=== PATIENT | female | born 1985 | race Asian ===

== ENCOUNTER 2024-01-04 17:46 | Emergency (ER) | payer BC, SELFPAY ==
[2024-01-04 17:48] VITALS: BP 119/60; PULSE 87; RESP 16; TEMP 36.9; O2SAT 100; BMI 19.5
[2024-01-04 18:11] LABS: Absolute Lymphocyte Count 1.67 X10^3/uL (0.83-4.51); Basophil# 0.04 X10^3/uL; Basophil% 0.7 % (0-1); Eosinophil# 0.01 X10^3/uL; Eosinophils% 0.2 % (0-5); Hematocrit 43.4 % (37-47); Hemoglobin 14.4 g/dL (12.0-15.0); Lymphocyte # 1.67 X10^3/ul (0.83-4.51); Lymphocyte % 27.5 % (19-41); Mean Corp Hgb Conc 33.2 g/dL (32-36); Mean Corpuscular Hgb 32.2 pg (27.0-32.0); Mean Corpuscular Volume 97.1 fL (81-99); Monocyte# 0.35 X10^3/uL; Monocyte% 5.8 % (0-10); NRBC Flagged by Analyzer 0 % (0-5); Neutrophil % 65.6 % (47-70); Platelet Count 310 K/mm3 (150-450); RBC Distribution Width CV 12.5 % (11.6-14.6); RBC Distribution Width SD 44.3 fl (35.1-43.9); Red Blood Count 4.47 M/mm3 (4.2-5.4); White Blood Count 6.1 K/mm3 (4.4-11.0)
[2024-01-04 18:23] LABS: Internal QC Validated? YES +Cl - CLEAR BKGD; Pregnancy, Serum, hCG Quali. NEGATIVE Negative
[2024-01-04 18:33] LABS: ALB/GLOB Ratio 1.2 RATIO (0.9-2.4); AST(SGOT) 26 U/L (15-37); Alanine Aminotransfer ALT/SGPT 25 U/L (13-56); Albumin, Serum 4.4 g/dL (3.2-5.0); Alkaline Phosphatase 58 U/L (45-117); Anion Gap 7 (5-15); BUN 7 mg/dL (7-18); BUN/Creat Ratio 10.1 RATIO (10-20); Calcium,Total 9.1 mg/dL (8.5-10.1); Chloride 107 mmol/L (98-107); EST Glomerular Filtration Rate 99 mL/min (>60); Est Glom Filt Rate - Afr Amer 120 mL/min (>60); Estimated Creatinine Clearance 96.58 ml/min; Globulin 3.6 g/dL (2.2-4.2); Glucose 98 mg/dL (74-106); Potassium 3.5 mmol/L (3.5-5.1); Sodium Level 139 mmol/L (136-145)
--- NOTE | 2024-01-04 18:37 | EKG12_ITS ---
Test Reason : EPIGASTRIC PAIN Blood Pressure : / mmHG Vent. Rate : 071 BPM Atrial Rate : 071 BPM P-R Int : 130 ms QRS Dur : 082 ms QT Int : 396 ms P-R-T Axes : 008 084 022 degrees QTc Int : 430 ms Normal sinus rhythm Normal ECG Confirmed by Satnam Denise ([id number]), features editor SADIA BERNARD ([id number]) on 01/05/2024 9:47:00 AM Referred By: JODIE/MOE Confirmed By:Satnam Denise
--- NOTE | 2024-01-04 19:04 | RAD_ITS ---
INDICATION: Chest pain EXAMINATION/TECHNIQUE: X-RAY - XR Chest 1 View COMPARISON: No relevant prior comparison study available FINDINGS: LINES/DEVICES: None. LUNGS: No consolidation, edema or effusion. No pneumothorax. MEDIASTINUM AND CARDIOVASCULAR STRUCTURES: Cardiac silhouette not enlarged. Central airways and mediastinal contour are unremarkable. BONES AND SOFT TISSUES: Unremarkable. RAD/Chest 1 View (Portable) IMPRESSION: No radiographic evidence of acute cardiopulmonary disease. Electronically Signed: Ct Ann MD at 19:38 EST ,
[2024-01-04 19:08] LABS: Lipase 27 U/L (13-75); Troponin-I HS 4 pg/mL (3.0-54.0)
[2024-01-04 19:47] VITALS: BP 106/78; PULSE 68; RESP 20; TEMP 36.8; O2SAT 99
[2024-01-04 19:56] VITALS: BP 106/78; PULSE 79; RESP 19; TEMP 36.8; O2SAT 100
--- NOTE | 2024-01-04 20:22 | EX.ED.DYSGE1 ---
HPI <Renate Tavarez RN - Last Filed: 01/04/24 20:33> History of Present Illness Chief Complaint: Abd Pain Informant: patient Onset/Context/Timing Onset: Days (2) Context: Gradual Onset Timing: Continuous Quality: Sharp Location: Epigastric Current Severity: 3/10 Maximum Severity: 6/10 Associated Symptoms Associated Symptoms: Chest pressure, nausea, vomiting, dizziness, decreased appetite Narrative Narrative: Patient is a 38-year-old female from [facility] who presents to the ED with sharp epigastric pain beginning 01/03/2024. Patient developed chest pressure, dizziness, and headache today. Patient reports vomiting yesterday with decreased appetite. Patient reports chronic epigastric pain since childhood. Patient reports having polyps removed from stomach in 2021 in [place]. Patient denies any aggravating factors. Reports only time improves the pain. Patient reports taking stomach medicne she obtained from [employer] with minimal relief. Patient denies shortness of breath. Denies diarrhea. Denies dysuria, hematuria, or urinary frequency. Prior similar symptoms: Yes Recent Illness/Hospitalization: No PFSH <Renate Tavarez RN - Last Filed: 01/04/24 20:33> PFSH Medical History Gastric polyps Smoker Home Medications pantoprazole 40 mg granules delayed-release for susp in packet (Protonix) 40 mg PO DAILY #30 ea 01/04/24 [Rx Last Taken Unknown] Allergy/AdvReac Type Severity Reaction Status Date / Time No Known Allergies Allergy Verified 01/04/24 17:47 Social History Smoking Status: Current some day smoker tobacco type: cigarettes ROS <Renate Tavarez RN - Last Filed: 01/04/24 20:33> ROS ED Cardiovascular Cardiovascular: Reports chest pain; Denies orthopnea, palpitations or racing heartbeat Respiratory/Chest Respiratory/Chest: Reports cough; Denies dyspnea, dyspnea on exertion or orthopnea Gastrointestinal Gastrointestinal: Reports nausea, vomiting and other Details: Epigastric pain ; Denies constipation, diarrhea or melena Genitourinary Genitourinary ED: Denies dysuria, hematuria or urinary frequency Musculoskeletal Musculoskeletal: Denies arthralgias or myalgias Neurologic Neurologic: Reports headache(s); Denies paresthesias or weakness EXAM <Renate Tavarez RN - Last Filed: 01/04/24 20:33> Physical Exam Const Vital Signs: 01/04/24 17:48 01/04/24 19:47 01/04/24 19:56 Temperature 98.5 F 98.2 F 98.2 F Temperature Source Temporal Oral Pulse Rate 87 68 79 Respiratory Rate 16 20 H 19 H Blood Pressure 119/60 106/78 106/78 Blood Pressure Mean 79 87 87 Pulse Ox 100 99 100 Oxygen Delivery Method Room Air Room Air Positive well nourished and well developed General Appearance ED: well developed and NAD HEENT Reports moist mucous membranes Eyes PERRL Chest Wall inspection of chest normal and palpation of chest normal Resp normal respiratory effort and clear to auscultation bilaterally Cardio regular rate, regular rhythm, S1 normal heart sound and S2 normal heart sound GI normal to inspection, nondistended, normoactive bowel sounds and non-tender Palpation: soft Extremity normal to inspection General Extremety ED: Negative for edema General Extremity: Negative for edema Neuro oriented x3 Sensorium / Orientation: alert Motor Exam: strength 5/5 throughout Psych mental status grossly normal Skin no rashes or lesions noted <Dr. Shimon Staples MD - Last Filed: 01/04/24 20:37> Physical Exam Const Vital Signs: 01/04/24 17:48 01/04/24 19:47 01/04/24 19:56 Temperature 98.5 F 98.2 F 98.2 F Temperature Source Temporal Oral Pulse Rate 87 68 79 Respiratory Rate 16 20 H 19 H Blood Pressure 119/60 106/78 106/78 Blood Pressure Mean 79 87 87 Pulse Ox 100 99 100 Oxygen Delivery Method Room Air Room Air MDM <Renate Tavarez RN - Last Filed: 01/04/24 20:33> [facility] MDM Narrative Medical decision making narrative: Patient placed on compliance monitor. IV initiated. Labwork obtained to evaluate for leukocytosis, anemia, and electrolyte derangement. History & Record Review Discussion w/independent historian: Patient Lab Data Attestation: I reviewed the patient's lab results. Labs: Laboratory Results - last 24 hr 01/04/24 18:00 WBC 6.1 RBC 4.47 Hgb 14.4 Hct 43.4 MCV 97.1 MCH 32.2 H MCHC 33.2 RDW Std Deviation 44.3 H RDW Coeff of Anthony 12.5 Plt Count 310 MPV 10.0 Immature Gran % (Auto) 0.200 Neut % (Auto) 65.6 Lymph % (Auto) 27.5 [place] % (Auto) 5.8 Eos % (Auto) 0.2 Baso % (Auto) 0.7 Absolute Neuts (auto) 4.0 Absolute Lymphs (auto) 1.67 Nucleated RBC % 0 Sodium 139 Potassium 3.5 Chloride 107 Carbon Dioxide 25.0 Anion Gap 7 BUN 7 Creatinine 0.70 Estim Creat Clear Calc 96.58 Est GFR (MDRD) Af Amer 120 Est GFR (MDRD) Non-Af 99 BUN/Creatinine Ratio 10.1 Glucose 98 Calcium 9.1 Total Bilirubin 0.90 AST 26 ALT 25 Alkaline Phosphatase 58 Troponin I High Sens 4 Total Protein 8.0 Albumin 4.4 Globulin 3.6 Albumin/Globulin Ratio 1.2 Lipase 27 Serum , Qual NEGATIVE Radiography Chest X-Ray - ED: 1 View, Read by ED Physician and No Acute Disease Diagnostic Testing: Clinical Impression(s) from Imaging Studies Chest X-Ray 01/04/24 19:04 IMPRESSION: No radiographic evidence of acute cardiopulmonary disease. Electronically Signed: Ct Ann MD at 19:38 EST , EKG Initial EKG: Attestation: I personally reviewed and interpreted this EKG as follows: Interpretation: Sinus Rhythm and No Acute Injury Pattern Comments: Sinus rhythm with rate of 71. No evidence of ischemia or dysrhythmia. Differential Diagnosis Chest pain/SOB: ACS Abdominal Pain: Pancreatitis and Bowel obstruction Management Discussion w/another healthcare provider: Other (Dr. Staples, ED provider.) Treatment and Re-Evaluation :: CBC shows normal white count 6.1, hemoglobin 14.4, and neutrophils 65.6. Chemistry unremarkable. High-sensitivity troponin negative at 4. Lipase negative at 27. Serum negative. Chest x-ray negative for acute cardiopulmonary process. Upon reevaluation, patient awake and alert. Resting comfortably in bed. Patient to be discharged home with abdominal pain of uncertain etiology. Patient to be prescribed Protonix 40 mg daily for possible reflux. Patient to follow-up with Dr. López in 1 week. Plan discussed with patient. Patient agreeable. <Dr. Shimon Staples MD - Last Filed: 01/04/24 20:37> MDM MDM Narrative Medical decision making narrative: Patient placed on compliance monitor. IV initiated. Labwork obtained to evaluate for leukocytosis, anemia, and electrolyte derangement. I have personally performed a face to face assessment of the patient and have reviewed the FRANK Note. I performed a substantive portion of the visit including all aspects of the following. My soni findings include: History is [38-year-old female from [facility] is currently a professor at the [employer]. Presents complaining of abdominal pain with radiation into her chest. No history of cardiac disease. No prior abdominal surgeries other than upper endoscopy about a year and a half ago in [facility] for abdominal polyps. She denies vomiting or diarrhea. No fever. No melena. No hematemesis. No exertional chest pain. No history of DVT or PE. No leg pain or swelling. No hemoptysis.] Exam is [well-appearing 38-year-old female. Vital signs are stable afebrile. Pulse ox 100% on room air no hypoxia. HEENT exam unremarkable. Neck nontender. No lymphadenopathy. Lungs clear to auscultation bilaterally. Heart regular rhythm no murmur rate about 80. Chest wall and ribs nontender. Abdomen currently nontender. Normal bowel sounds. No peritoneal signs. No distention. No organomegaly or masses. No hernia. Right upper right lower quadrant completely nontender. No signs of trauma or bruising. Back nontender normal exam. Moving all 4 extremities. Nontender no edema. Normal motor strength. Normal range of motion. She is awake and alert.] Medical Decision Making [38-year-old female with abdominal pain radiating to her chest. This may be secondary to reflux. Rule out pancreatitis, gallbladder disease versus atypical chest pain.] Other additions or changes: [Repeat exam patient doing well at 8:30 PM. She will be discharged home. Placed on Protonix. Outpatient local follow-up. She is completely pain-free at this time. And has no reproducible abdominal pain.] Lab Data Lab results narrative: CBC normal. White count of 6. H&H 14 and 43. Platelets 310. Electrolytes normal gap of 7. Normal BUN and creatinine. Glucose 98. Liver enzymes normal. Lipase normal at 27. Serum test negative. EKG normal rate of 71. Chest x-ray normal. Normal cardiac silhouette. Normal mediastinum. Normal lungs. Labs: Laboratory Results - last 24 hr 01/04/24 18:00 WBC 6.1 RBC 4.47 Hgb 14.4 Hct 43.4 MCV 97.1 MCH 32.2 H MCHC 33.2 RDW Std Deviation 44.3 H RDW Coeff of Anthony 12.5 Plt Count 310 MPV 10.0 Immature Gran % (Auto) 0.200 Neut % (Auto) 65.6 Lymph % (Auto) 27.5 [place] % (Auto) 5.8 Eos % (Auto) 0.2 Baso % (Auto) 0.7 Absolute Neuts (auto) 4.0 Absolute Lymphs (auto) 1.67 Nucleated RBC % 0 Sodium 139 Potassium 3.5 Chloride 107 Carbon Dioxide 25.0 Anion Gap 7 BUN 7 Creatinine 0.70 Estim Creat Clear Calc 96.58 Est GFR (MDRD) Af Amer 120 Est GFR (MDRD) Non-Af 99 BUN/Creatinine Ratio 10.1 Glucose 98 Calcium 9.1 Total Bilirubin 0.90 AST 26 ALT 25 Alkaline Phosphatase 58 Troponin I High Sens 4 Total Protein 8.0 Albumin 4.4 Globulin 3.6 Albumin/Globulin Ratio 1.2 Lipase 27 Serum , Qual NEGATIVE Radiography Chest X-Ray - ED: Heart, Lungs, Mediastinum and Bony Structures Diagnostic Testing: Clinical Impression(s) from Imaging Studies Chest X-Ray 01/04/24 19:04 IMPRESSION: No radiographic evidence of acute cardiopulmonary disease. Electronically Signed: Ct Ann MD at 19:38 EST Reading Location ID and State: [facility] / [place] Tel , Service support , Chest x-ray, portable, single view interpreted by myself and the radiologist shows no acute abnormality. Normal cardiac silhouette. Normal mediastinum. Normal lung hood. Rhythm Strip Rhythm Strip: Sinus Rhythm Rate: 71 Ectopy: None EKG Initial EKG: Prior: No Prior Discharge Plan Triage Chief Complaint: Abd Pain ED Provider: Shimon Staples Dx/Rx/DC Orders Clinical Impression: Abdominal pain Instructions: Abdominal Pain Prescriptions: New pantoprazole [Protonix] [address] for susp in packet 40 mg PO DAILY Qty: 30 0RF Primary Care Provider: Care Physician,No Primary Referrals: Dov Trejo MD [Med Staff - Blower Room Attendant] - 1 Week if not improving Care Physician,No Primary [Primary Care Provider] - Activity Restrictions/Additional Instructions: Return if increasing pain, fever, intractable vomiting or feeling worse. Your labs were normal as was your chest x-ray and EKG. Follow-up with a local primary care physician. We will trial you on the medication Protonix which may help you with this stomach pain if it is from reflux or indigestion. Take it once daily. You may also use Tums. Disposition Disposition: Home, Self Care
== END 2024-01-04 20:43 | disposition home or self-care (01) ==
PROVIDERS: Emergency Provider Emergency Medicine; Visit Provider Emergency Medicine
DX: R10.13 Epigastric pain (principal); F17.210 Nicotine dependence, cigarettes, uncomplicated
CPT/HCPCS: 71045; 80053; 83690; 84484; 84703; 85025; 93005; 99283; A4216